=== PATIENT | female | born 1945 | race Caucasian/White ===

== ENCOUNTER 2017-07-13 20:34 | Emergency (ER) | payer MEDICARE, OTHER ==
[~2017-07-13] VITALS: Ht 162.6 cm; Wt 53.5 kg
[~2017-07-13 20:34] MED LIST: CEFD300C37 PO; DOXY100T PO; FAMO20TA37 PO; OXYC20TA42 PO; OXYC5CAP2 PO; PRED20TA PO
[2017-07-13] MEDS ORDERED: SODIUM CHLORIDE 0.9% 1,000ML IVBOLUS ONE (22:00)
[2017-07-13] MEDS ORDERED: SODIUM CHLORIDE FLUSH 10ML SYR IVF ONE (22:00)
[2017-07-13 22:17] LABS: RAPID INFLUENZA A Negative (Negative); RAPID INFLUENZA B POSITIVE (Negative)
[2017-07-13 22:20] LABS: ALANINE AMINOTRANSFERASE 23 U/L (12-78); ALBUMIN 3.4 g/dL (3.4-5.0); ANION GAP 7 mmol/L (5-15); CALCIUM 8.3 mg/dL (8.5-10.1); CHLORIDE 105 mmol/L (98-107); CREATININE 0.63 mg/dL (0.55-1.02)
[2017-07-13 22:23] LABS: ALKALINE PHOSPHATASE 78 U/L (45-117); BILIRUBIN,TOTAL 0.6 mg/dL (0.2-1.0); TOTAL PROTEIN 7.4 g/dL (6.4-8.2)
[2017-07-13 22:30] LABS: BASOPHILS % (AUTO) 0 % (0-1); EOSINOPHILS % (AUTO) 0 % (1-7); LYMPHOCYTES # (AUTO) 0.57 x10^3/uL (1-3.4); LYMPHOCYTES % (AUTO) 5 % (22-44); MD NO; MEAN CORPUSCULAR VOLUME 90.9 fL (80-100); MEAN PLATELET VOLUME 10.3 fL (7.4-10.4); MONOCYTES # (AUTO) 0.48 x10^3/uL (0.2-0.8); MONOCYTES % (AUTO) 5 % (2-9); NEUTROPHILS # (AUTO) 9.59 x10^3/uL (1.8-6.8); NEUTROPHILS % (AUTO) 90 % (42-75); PLATELET COUNT 205 x10^3/uL (130-400); RED BLOOD COUNT 5.32 x10^6/uL (3.82-5.3); RED CELL DISTRIBUTION WIDTH 14.6 % (9.6-15.2)
[2017-07-13 22:34] LABS: MICROSCOPIC INDICATED
[2017-07-13 22:36] VITALS: BP 140/98
[2017-07-13 22:47] LABS: CULTURE INDICATED? YES
== END 2017-07-13 23:21 | disposition home or self-care (01) ==
LOC: ED 22:33
DX: J11.1 Influenza due to unidentified influenza virus with other respiratory manifestations (principal); J40 Bronchitis, not specified as acute or chronic; M19.90 Unspecified osteoarthritis, unspecified site; Z88.8 Allergy status to other drugs, medicaments and biological substances
CPT/HCPCS: 36415; 71046; 80053; 81001; 85025; 87086; 87400; 96360; 99285; J7030

== ENCOUNTER 2017-12-07 07:11 | Emergency (ER) | payer MEDICARE, OTHER ==
[~2017-12-07] VITALS: Ht 157.5 cm; Wt 59.3 kg
[2017-12-07 07:12] VITALS: BP 172/67
== END 2017-12-07 09:40 | disposition home or self-care (01) ==
LOC: ED 08:13
DX: S16.1XXA Strain of muscle, fascia and tendon at neck level, initial encounter (principal); S70.02XA Contusion of left hip, initial encounter; S09.90XA Unspecified injury of head, initial encounter; L98.8 Other specified disorders of the skin and subcutaneous tissue; W19.XXXA Unspecified fall, initial encounter; Y93.89 Activity, other specified; Y99.8 Other external cause status; Y92.009 Unspecified place in unspecified non-institutional (private) residence as the place of occurrence of the external cause
CPT/HCPCS: 70450; 72125; 99284

== ENCOUNTER 2018-10-30 23:36 | Emergency (ER) | payer MEDICARE, OTHER ==
[~2018-10-30] VITALS: Ht 162.6 cm; Wt 61.1 kg
[2018-10-31 00:12] VITALS: BP 152/71
--- NOTE | 2018-10-31 00:12 | NUR ---
FIRST CONTACT WITH PT. PT. BIB SON FOR C/O HIGH B/P READING TONIGHT AT HOME. PT. DENIES ANY JERNIGAN, DIZZINESS, CP, OR SOB. PT'S BP 152/71 HERE. PT'S AOX4. RESPS EVEN AND UNLABORED. BP/SPO2 MONITORS IN PLACE. CALL LIGHT WITHIN REACH. EDMD AT BEDSIDE NOW.
--- NOTE | 2018-10-31 00:19 | NUR ---
PT GIVEN DC INSTRUCTIONS. PT'S AOX4. RESPS EVEN AND UNLABORED. PT AMB TO DC WIOTH STEADY GAIT. NO ACUTE DISTRESS AT DC.
== END 2018-10-31 00:20 | disposition home or self-care (01) ==
LOC: ED 23:59
DX: I10 Essential (primary) hypertension (principal); M81.0 Age-related osteoporosis without current pathological fracture; Z87.11 Personal history of peptic ulcer disease
CPT/HCPCS: 99281